=== PATIENT | female | born 1945 | race Caucasian/White ===

== ENCOUNTER 2017-01-05 15:10 | Emergency (ER) | payer OTHER ==
[2017-01-05 15:19] VITALS: BP 188/107; PULSE 84; RESP 16; O2SAT 97
--- NOTE | 2017-01-05 15:52 | EDPHY ---
H & P Time Seen by Provider: 01/05/17 15:35 HPI/ROS: CHIEF COMPLAINT: Left shoulder pain HISTORY OF PRESENT ILLNESS: The patient is a 71-year-old female who presents emergency department after falling and tripping in the parking lot. She landed on her left shoulder. She now has moderate left shoulder pain that does not radiate. She has no numbness or tingling. She has mild abrasion on her right knee but no difficulty walking or pain with leg movement. She did not strike her head or lose consciousness. She has no neck pain. REVIEW OF SYSTEMS: My complete review of systems is negative except as mentioned in the HPI. Past Medical/Surgical History: Hypothyroidism, Hodgkin's lymphoma Past surgical history: Includes right femur fracture Smoking Status: Never smoked Physical Exam: Vitals noted GENERAL: Well-appearing, in no acute distress, alert. HEENT: Eyes normal to inspection. No visible trauma. NECK: No thyromegaly, no lymphadenopathy, supple.No spinal tenderness. Nexus negative. RESPIRATORY: Clear to auscultation bilaterally, no rales, rhonchi or wheezing. CVS: well perfused. ABDOMEN: Soft, nontender. BACK: Normal to inspection, no CVA tenderness. No spinal tenderness SKIN: Normal color, no rash, warm, dry. No pallor. Abrasion on right knee. EXTREMITIES: patient has swelling around her left humeral head. There is no skin tenting. There is mild tenderness to palpation on exam. Clavicles nontender not deformed. She is neurovascularly intact distally in all nerve distributions. No proximal arm or hand tenderness to palpation. NEURO/PSYCH: [Alert and oriented x3, normal mood and affect, normal motor sensory exam. Constitutional: Initial Vital Signs Heart Rate 84 01/05/17 15:12 Respiratory Rate 16 01/05/17 15:12 Blood Pressure 188/107 H 01/05/17 15:12 O2 Sat (%) 97 01/05/17 15:12 O2 Delivery Mode Room Air Allergies/Adverse Reactions: No Known Allergies Allergy (Unverified 07/20/13 14:20) Home Medications: Medication Instructions Recorded Aspirin 01/05/17 Claritin 01/05/17 Flonase Allergy Relief 01/05/17 Levothyroxine 01/05/17 oxyCODONE IR [Oxycodone Ir] 5 mg PO Q4 #15 tab 01/05/17 Medical Decision Making ED Course/Re-evaluation: In the emergency department I discussed possible etiologies with the patient. X -ray was ordered. Left shoulder x-ray: Please refer the dictated report. The patient has mildly displaced, vertical fracture through the greater tuberosity of the left shoulder. Discussed the results with the patient. I showed her x-ray images. Patient states that she has previously seen Dr. Lacy. She was placed in a shoulder sling. Post sling placement she was neurovascular intact distally. Patient was given Oxy IR 5 mg orally. I discussed the plan with the patient. She will follow up with Orthopedics. She is given warnings prior to leaving. Differential Diagnosis: My differential includes but is not limited to fracture, dislocation, contusion , rotator cuff injury, sprain, strain - Data Points Medications Given: Discontinued Medications Oxycodone HCl (Oxycodone Ir) 5 mg PO EDNOW ONE Stop: 01/05/17 16:07 Last Admin: 01/05/17 16:13 Dose: 5 mg Departure - Departure Disposition: Home, Routine, Self-Care Clinical Impression: Fracture of humeral head, left, closed Qualifiers: Encounter type: initial encounter Qualified Code(s): S42.292A - Other displaced fracture of upper end of left humerus, initial encounter for closed fracture Condition: Good Instructions: Proximal Humerus Fracture (ED) Referrals: Libia Garcia MD [Primary Care Provider] - As per Instructions Gianfranco Lacy MD [Medical Doctor] - 3-4 days, if not improved Prescriptions: oxyCODONE IR [Oxycodone Ir] 5 mg PO Q4 #15 tab
[2017-01-05] MEDS ORDERED: oxyCODONE IR 5 MG TAB PO ONE (16:06)
== END 2017-01-05 16:29 | disposition home or self-care (01) ==
DX: S42.292A Other displaced fracture of upper end of left humerus, initial encounter for closed fracture (principal); Z79.82 Long term (current) use of aspirin; W01.0XXA Fall on same level from slipping, tripping and stumbling without subsequent striking against object, initial encounter; Y92.481 Parking lot as the place of occurrence of the external cause

== ENCOUNTER → 2017-11-19 | Outpatient (CLI) | payer OTHER | LOC: FIMAGING 08:24 | PROVIDERS: ATTEND Internal Medicine | DX: Z12.31 Encounter for screening mammogram for malignant neoplasm of breast (principal) ==